=== PATIENT | female | born 1995 | race African-American/Black ===

== ENCOUNTER 2018-07-15 19:00 | Emergency (ER) | payer BC ==
[~2018-07-15] VITALS: Ht 175.3 cm; Wt 62.6 kg
[~2018-07-15 19:00] MED LIST: LACTULOSE20 GM/301 ORAL; ZOFRAN ODT4 MG ORAL
[2018-07-15 19:36] VITALS: BP 112/67
[2018-07-15] MEDS ORDERED: IBUPROFEN600 MG ORAL (19:50)
[2018-07-15] MEDS ORDERED: AUGMENTIN 875-1 EAC1 ORAL (19:50)
[2018-07-15 19:57] VITALS: BP 114/66
[2018-07-15] MEDS ORDERED: Augmentin 875mg Tab ORAL ONE (20:00)
[2018-07-15] MEDS ORDERED: Acetaminophen 500mg (ES) tab ORAL ONE (20:00)
--- NOTE | 2018-07-15 21:39 | Emergency Room Report ---
History of Present Illness General Chief Complaint: Skin Rash/Abscess Source: Patient Present Illness HPI Patient is a 22-year-old female brought in by private car the patient was noted to have Increased leg pain and swelling for 2 days. The patient had recent skin advised her lower extremities. She reports having increased discomfort as well as itching. She noticed increased swelling to the back of her leg. The patient was noted to have decreased range of motion. She denies any fever. She denies any recent trauma.She had been taking antibiotics for acne but does not recall what they are. Allergies: Coded Allergies: NO KNOWN ALLERGIES (Unverified Allergy, Unknown, 03/11/15) SHELLFISH DERIVED (Unverified Allergy, Unknown, 03/11/15) Patient History Past Medical History: see triage record Last Menstrual Period: May Reviewed Nursing Documentation: PMH: Agreed; PSxH: Agreed Nursing Documentation-PMH Past Medical History: No Stated History Review of Systems All Other Systems: negative except mentioned in HPI Physical Exam Vital Signs Date Time Temp Pulse Resp B/P (MAP) Pulse Ox O2 Delivery O2 Flow Rate FiO2 07/15/18 19:07 98.7 104 16 108/38 100 Room Air 98.8 Sp02 EP Interpretation: reviewed, normal General Appearance: normal inspection, well appearing, no apparent distress, alert, GCS 15 Head: atraumatic ENT: normal ENT inspection, hearing grossly normal, normal voice Neck: normal inspection, full range of motion, supple, no bony tend Respiratory: normal inspection, lungs clear, normal breath sounds, no respiratory distress, no retraction, no wheezing Cardiovascular #1: regular rate, rhythm, no edema Gastrointestinal: normal inspection, normal bowel sounds, non tender, soft, no guarding, no hernia Genitourinary: no CVA tenderness Musculoskeletal: normal inspection, back normal, normal range of motion Neurologic: normal inspection, alert, responsive, speech normal Psychiatric: normal inspection, judgement/insight normal, mood/affect normal Skin: other - left knee popliteal erythema, no sarahi absess, no pulsatile mass Medical Decision Making Diagnostic Impression: Primary Impression: Cellulitis ER Course Patient presented for skin rash. Differential diagnosis included was not limited to abscess, cellulitis, folliculitis. Patient has a benign exam and does not appear to require any further imaging or laboratory testing at this time. The patient was given oral antibiotics what appears to be a mild cellulitis. The patient was given prescription advised wound rechecked in 2 days. The patient was to return if she began having increased erythema or swelling. She is advised to continue ice packs and to follow-up with her primary care physician. Last Vital Signs Date Time Temp Pulse Resp B/P (MAP) Pulse Ox O2 Delivery O2 Flow Rate FiO2 07/15/18 19:57 98.8 98 16 114/66 100 Room Air 209.8 Status: improved Disposition: HOME, SELF-CARE Condition: Stable Scripts Ibuprofen* (MOTRIN*) 600 Mg Tablet 600 MG ORAL Q8H PRN for For Pain, #30 TAB 0 Refills Prov: Pasha Rao MD 07/15/18 Amoxicillin/Potassium Clav 875-125* (AUGMENTIN 875-125 TABLET*) 1 Each Tablet 1 TAB ORAL TWICE A DAY, #14 TAB Prov: Pasha Rao MD 07/15/18 Referrals: NOT CHOSEN IPA/,REFERRING (PCP) Patient Instructions: Cellulitis, [id number] Pasha Rao MD Jul 15, 2018 21:39
== END 2018-07-15 19:58 | disposition home or self-care (01) ==
LOC: EMR 19:41
DX: L03.116 Cellulitis of left lower limb (principal); L03.115 Cellulitis of right lower limb; Z91.013 Allergy to seafood
CPT/HCPCS: 99283